=== PATIENT | male | born 1965 | race Caucasian/White ===

== ENCOUNTER 2024-05-04 11:14 | Emergency (ER) | payer BC, SELFPAY ==
[2024-05-04] VITALS (33 sets, daily range): BP systolic 91–124; BP diastolic 55–107; BMI 26.4
--- NOTE | 2024-05-04 11:41 | ED.GENMED ---
History of Present Illness
<DO Bebeto Burroughs Filed: 05/07/24 00:19>
General
Chief Complaint: Overdose Intentional
Source: patient
Time Seen by Provider: 05/04/24 11:34
History of Present Illness
History of Present Illness:
58-year-old male presents the emergency room for evaluation after an attempting suicide. Patient states that he has a longstanding history of depression and has been hospitalized several times. He has had suicide attempts in the past. Today the
patient states she just does not want to live anymore. No particular event set him off. Patient took 2 vials of nitro sublingually. This occurred at 10 AM. Patient states that after consuming the nitro he began feeling dizzy, sweaty but did not
pass out. Fortunately the nitro tablets in March 2023.
Past History
<DO Bebeto Burroughs Filed: 05/07/24 00:19>
Past History
ED Past Medical History: CAD, HTN, Hypercholesterolemia, IDDM, NIDDM and [place]
ED Past Surgical History: Other (Deviated septum)
Social History
Tobacco: Smoker
Alcohol: None
Drug: None
Personal:
Living: alone
Employment: Employed
Family History
Family History: CAD
Phy Exam
<DO Bebeto Burroughs Filed: 05/07/24 00:19>
Physical Exam
Physical Exam:
General: Awake, Alert, Oriented X3. Flat affect
Vitals: Mildly tachycardic
Head: Atraumatic
Eyes: Pupils equal, EOMI
Throat: Airway intact, no exudates
Neck: Trachea midline
Lungs: Clear and equal b/l
Heart: Regular rate, no murmurs
Abd: Soft, Nontender, No pulsatile mass
Neuro: Nonfocal
Skin: Warm, dry, no rash
Extremities: pulses equal b/l, no edema
Course
<Mohsen ChristensenAspen Ambriz, DO - Last Filed: 05/07/24 00:19>
Orders/Labs/Results
Orders:
Orders
05/04/24 11:17
EKG [Electrocardiogram (*1)] Urgent
Reason for Study: Other
Other Reason for Exam: overdose
05/04/24 11:18
EKG- Treatment ONCE
05/04/24 11:19
Crisis Consult Urgent
Reason for Consult: SI, attempt
05/04/24 11:25
1:1 Observation - Suicide/ Violent Behavior As Directed
05/04/24 11:31
Acetaminophen Urgent
Alcohol Urgent
Complete Blood Count/With Diff Urgent
Comprehensive Metabolic Panel Urgent
Salicylate Urgent
Comment: ADD ON
05/04/24 16:33
Potassium Chloride [KCl] 40 meq PO NOW STA
05/04/24 16:50
Urine Drug Abuse Screen Urgent
Date Specimen was Collected: 05/04/24
Time Specimen was Collected: 11:18
05/04/24 18:35
Lorazepam [Ativan] 1 mg PO NOW STA
Abnormal Lab Results
05/04/24 05/04/24
11:31 16:50
MPV 11.5 H fL
(7.4-10.4)
Abs Immat Gran (auto) 0.1 H 10^3/uL
(0-0.05)
Potassium 3.1 L mmol/L
(3.5-5.1)
Glucose 190 H mg/dl
(70-99)
AST 16 L U/L
(17-59)
Salicylates < 1.0 L mg/dl
(2.0-20.0)
Acetaminophen < 10 L ug/ml
(10-30)
Ur Tricyclics Screen Positive H
(Negative)
05/04/24 11:31
05/04/24 11:31
Vital Signs
Initial and Last Documented VS:
Initial Vital Signs
Temp Pulse Resp BP Pulse Ox
97.8 F 100 16 120/78 96
05/04/24 11:22 05/04/24 11:22 05/04/24 11:22 05/04/24 11:22 05/04/24 11:22
Last Documented Vital Signs
Temp Pulse Resp BP Pulse Ox
97.8 F 89 14 124/107 97
05/04/24 11:22 05/04/24 17:02 05/04/24 17:02 05/04/24 17:01 05/04/24 17:02
<Chase Burnett MD - Last Filed: 05/04/24 19:47>
Orders/Labs/Results
Orders:
Orders
05/04/24 11:17
EKG [Electrocardiogram (*1)] Urgent
Reason for Study: Other
Other Reason for Exam: overdose
05/04/24 11:18
EKG- Treatment ONCE
05/04/24 11:19
Crisis Consult Urgent
Reason for Consult: SI, attempt
05/04/24 11:25
1:1 Observation - Suicide/ Violent Behavior As Directed
05/04/24 11:31
Acetaminophen Urgent
Alcohol Urgent
Complete Blood Count/With Diff Urgent
Comprehensive Metabolic Panel Urgent
Salicylate Urgent
Comment: ADD ON
05/04/24 16:33
Potassium Chloride [KCl] 40 meq PO NOW STA
05/04/24 16:50
Urine Drug Abuse Screen Urgent
Date Specimen was Collected: 05/04/24
Time Specimen was Collected: 11:18
05/04/24 18:35
Lorazepam [Ativan] 1 mg PO NOW STA
Abnormal Lab Results
05/04/24 05/04/24
16:50
MPV 11.5 H fL
(7.4-10.4)
Abs Immat Gran (auto) 0.1 H 10^3/uL
(0-0.05)
Potassium 3.1 L mmol/L
(3.5-5.1)
Glucose 190 H mg/dl
(70-99)
AST 16 L U/L
(17-59)
Salicylates < 1.0 L mg/dl
(2.0-20.0)
Acetaminophen < 10 L ug/ml
(10-30)
Ur Tricyclics Screen Positive H
(Negative)
05/04/24 11:31
05/04/24 11:31
Vital Signs
Initial and Last Documented VS:
Initial Vital Signs
Temp Pulse Resp BP Pulse Ox
97.8 F 100 16 120/78 96
05/04/24 11:22 05/04/24 11:22 05/04/24 11:22 05/04/24 11:22 05/04/24 11:22
Last Documented Vital Signs
Temp Pulse Resp BP Pulse Ox
97.8 F 89 14 124/107 97
05/04/24 11:22 05/04/24 17:02 05/04/24 17:02 05/04/24 17:01 05/04/24 17:02
<Mohsen Ambriz DO - Last Filed: 05/07/24 00:19>
MDM/Problems Addressed
Differential Diagnosis Includes:
renate overdose, polypharmacy od, severe depression
MDM/Problems Addressed:
Patient presents after taking several sublingual nitroglycerin tablets and attempt to kill himself. Patient was somewhat symptomatic but has remained stable in the emergency room. Patient medically cleared for psychiatric treatment.
<Mohsen Ambriz DO - Last Filed: 05/07/24 00:19>
*Pulse Oximetry
Patient hypoxic: no
*EKG
Interpreted by ED Provider?: Yes
Interpretation: abnormal
Heart Rate: 101
Rate: tachycardiac
Rhythm: sinus
[place]: normal axis
Interval: normal interval
QRS Pattern: normal QRS
Ischemia: no ischemia
*Hspt Tutor Interpretation
Rate: tachycardiac
Interpretation: abnormal
Rhythm: sinus tachycardia
<Chase Burnett MD - Last Filed: 05/04/24 19:47>
*Critical Care Note
Total Time (30-74mins, 75-104mins- exclusive of procedures): Not Applicable
<Chase Burnett MD - Last Filed: 05/04/24 19:47>
Update Note
Update Note:
Discussed with [facility] toxicology (Dr. Marte) - as pt is asymptomatic after > 8hr from time of ingestion with stable vital signs, patient is cleared from medication ingestion stand point, as long as he is able to ambulate without any
symptoms with stable vital signs afterwards.
Pt will be transitioned to in-patient psychiatric facility for further evaluation and treatment. Pt provided with one dose of oral ativan for continual anxiety symptoms. Pt, however, remains hemodynamically stable.
ED Attending Note
<Mohsen Ambriz DO - Last Filed: 05/07/24 00:19>
-
Portions of this chart may have been created with voice recognition software.� Occasional wrong word or��sound alike� substitutions may have occurred due to the inherent limitations of voice recognition software.
Discharge Plan
Departure
Patient Disposition: Psych Facility
Date of Disposition: 05/04/24
Time of Disposition: 19:02
Patient Status:: 302
Discharge Problem:
Suicide attempt by drug overdose
Prescriptions:
No Action
gabapentin 300 MG capsule
300 mg PO BID
hydrochlorothiazide 25 MG tablet
12.5 mg PO DAILY
aspirin 81 MG tablet,delayed release (DR/EC)
81 mg PO DAILY Qty: 0 0RF
clonazepam 0.5 mg tablet
0.5 mg PO TID
Patient Comments:
02/05/2023: last filled 01/30/23, 90 tabs for 30 days from [id number]
sertraline 100 mg tablet
200 mg PO DAILY
trazodone 100 mg tablet
100 mg PO HS
amlodipine 10 mg tablet
10 mg PO DAILY
bupropion HCl 300 mg tablet extended release 24 hr
300 mg PO DAILY
Rx Instructions:
TAKEN W/ 150MG = 450MG
bupropion HCl 150 mg tablet extended release 24 hr
150 mg PO DAILY
Rx Instructions:
TAKEN W/ 300MG = 450MG
metformin 500 MG tablet
500 mg PO BID@0800,1700
cyanocobalamin (vitamin B-12) 250 mcg Tablet
250 mcg PO DAILY
omega-3 acid ethyl esters [Lovaza] 1 gram Capsule
1 cap PO DAILY
Referrals:
UNKNOWN - PT DOES,NOT KNOW [Family Provider] -
Interventions
Interventions:
*Risk Screen - Suicide Last Done: 05/04/24 11:22
*General Assessment Last Done: 05/04/24 11:22
*Neglect/Abuse Screening Last Done: 05/04/24 11:22
ED- Fall Risk Assessment Last Done: 05/04/24 12:20
*ED COVID-19 Vaccine History Last Done: 05/04/24 11:22
*Nursing Disposition Last Done: 05/04/24 20:43
ED- Cardiac Assessment Last Done: 05/04/24 12:20
ED- Neurological Assessment Last Done: 05/04/24 12:20
ED-Psychological Assessment Last Done: 05/04/24 12:20
ED- Pulmonary Assessment Last Done: 05/04/24 12:20
Discharge Date and Time
Discharge Date/Time: 05/04/24 20:43
Print Language: BURMESE
[2024-05-04 11:50] LABS: % Basophils 0.6 % (0-2); % Immature Granulocytes 0.5 % (0-0.5); % Lymphocytes 21.8 % (20.5-51.1); % Monocytes 5.9 % (1.7-9.3); % Neutrophils 70.2 % (42.2-75.2); Absolute Basophils 0.1 10^3/uL (0-0.2); Absolute Eosinophils 0.1 10^3/uL (0-0.7); Absolute Immature Granulocytes 0.1 10^3/uL (0-0.05); Absolute Monocytes 0.6 10^3/uL (0.1-0.6); Absolute Neutrophils 6.5 10^3/uL (1.4-6.5); Hematocrit 40.8 % (39.0-52.0); Hemoglobin 14.5 g/dL (13.0-18.0); Mean Corp Hgb Conc. 35.5 g/dL (33.0-37.0); Mean Corpuscular Hgb 30.3 pg (27.0-31.0); Mean Corpuscular Volume 85.2 fL (80.0-94.0); Mean Platelet Volume 11.5 fL (7.4-10.4); Nucleated Red Blood Cells % 0 % (-); Platelet Count 165 10^3/uL (130-400); Red Blood Cell Count 4.79 10^6/uL (4.70-6.10); White Blood Cell Count 9.3 10^3/uL (4.8-10.8)
[2024-05-04 12:00] LABS: ALT (SGPT) 16 U/L (0-50); AST (SGOT) 16 U/L (17-59); Alkaline Phosphatase 90 U/L (38-126); Blood Urea Nitrogen 17 mg/dl (9-20); Calcium 8.7 mg/dl (8.4-10.2); Carbon Dioxide 28 mmol/L (22-30); Chloride 101 mmol/L (98-107); Estimated Creatinine Clearance 105 ml/min; Glucose 190 mg/dl (70-99); Potassium 3.1 mmol/L (3.5-5.1); Sodium 141 mmol/L (135-145); Total Bilirubin 0.5 mg/dl (0.2-1.3); Total Protein 6.5 g/dl (6.3-8.2); eGFR > 60.00
[2024-05-04 12:04] LABS: Alcohol None Detected
[2024-05-04 15:27] LABS: Acetaminophen < 10 ug/ml (10-30); Salicylate < 1.0 mg/dl (2.0-20.0)
[2024-05-04] MEDS: KCL 40 MEQ PO (16:51)
[2024-05-04 17:09] LABS: Amphetamines Negative (Negative); Barbiturates Negative (Negative); Benzodiazepines Negative (Negative); Buprenorphine Negative (Negative); Cocaine Negative (Negative); Marijuana Negative (Negative); Methadone Negative (Negative); Methamphetamines Negative (Negative); Opiates Negative (Negative); Phencyclidine Negative (Negative); Tricyclic Antidepressants Positive (Negative)
[2024-05-04] MEDS: ATIVAN 1 MG PO (18:40)
== END 2024-05-04 20:43 ==
LOC: EMR 11:14
PROVIDERS: EMERGENCY PHYSICIAN Emergency Medicine
DX: T46.3X2A Poisoning by coronary vasodilators, intentional self-harm, initial encounter (principal); F17.200 Nicotine dependence, unspecified, uncomplicated; F32.A Depression, unspecified
CPT/HCPCS: 99285; 80053; 80143; 80179; 80306; 82077; 85025; 93005